=== PATIENT | male | born 1975 | race American Indian/Alaskan Native ===

== ENCOUNTER 2019-11-28 12:40 | Emergency (ER) | payer SELFPAY ==
[2019-11-28] MEDS ORDERED: SODIUM CHLORIDE 0.9% 1000 ML 1,000 ML IV ONE (13:07)
--- NOTE | 2019-11-28 13:38 | Emergency Department Report ---
HPI - General Chief Complaint: Alcohol Time Seen by Provider: 11/28/19 13:02 - HPI HPI: Room 2 The patient is a 44-year-old male present with a chief complaint of alcohol intoxication and suicidal ideation. Per EMS the patient was found in his car intoxicated. When asked what was bothering him the patient replies "everything." The patient acknowledges consuming alcohol but denies any other drugs. When asked if he has had thought of killing himself the patient replies yes. When asked for how long the patient states "quite a bit." The patient states he attempted to kill himself by drinking alcohol. Patient denies any other coingestants ED Past Medical Hx - Past Medical History Previous Medical History?: Yes Hx Hypertension: Yes Hx Diabetes: Yes - Surgical History Past Surgical History?: Yes Additional Surgical History: Right foot - Family History Family history: no significant - Social History Smoking Status: Never Smoker Substance Use Type: Alcohol ED Review of Systems ROS: Stated complaint: ETOH Other details as noted in HPI Psychiatric: suicidal thoughts Physical Exam - Physical Exam Vital Signs: Vital Signs 11/28/19 11/28/19 11/28/19 12:46 12:53 13:00 Temperature 98.7 F Pulse Rate 98 H 100 H 89 Respiratory 14 12 22 Rate Blood Pressure 120/74 120/74 118/68 O2 Sat by Pulse 95 Oximetry 11/28/19 13:15 Temperature Pulse Rate 99 H Respiratory 17 Rate Blood Pressure 129/83 O2 Sat by Pulse 97 Oximetry Physical Exam: GENERAL: The patient is well-developed well-nourished male lying on stretcher appearing intoxicated. [] HEENT: Normocephalic. Atraumatic. Extraocular motions are intact. Patient has moist mucous membranes. NECK: Supple. Trachea midline CHEST/LUNGS: Clear to auscultation. There is no respiratory distress noted. HEART/CARDIOVASCULAR: Regular. There is no tachycardia. There is no gallop rub or murmur. ABDOMEN: Abdomen is soft, nontender. Patient has normal bowel sounds. There is no abdominal distention. SKIN: There is no rash. There is no edema. There is no diaphoresis. NEURO: The patient is awake but intoxicated. The patient is not cooperative with neurologic exam. MUSCULOSKELETAL: There is no evidence of acute injury. ED Course Vital Signs 11/28/19 11/28/19 11/28/19 12:46 12:53 13:00 Temperature 98.7 F Pulse Rate 98 H 100 H 89 Respiratory 14 12 22 Rate Blood Pressure 120/74 120/74 118/68 O2 Sat by Pulse 95 Oximetry 11/28/19 13:15 Temperature Pulse Rate 99 H Respiratory 17 Rate Blood Pressure 129/83 O2 Sat by Pulse 97 Oximetry ED Medical Decision Making - Lab Data Result diagrams: 11/28/19 13:30 11/28/19 13:30 - Differential Diagnosis Suicidal ideation, alcohol intoxication Critical care attestation.: If time is entered above; I have spent that time in minutes in the direct care of this critically ill patient, excluding procedure time. ED Disposition Clinical Impression: Suicidal ideation Disposition: DC/TX-65 PSY HOSP/PSY UNIT Is pt being admited?: No Does the pt Need Aspirin: No Condition: Stable Time of Disposition: 16:32 (Awaiting acceptance)
[2019-11-28 13:51] LABS: Basophils # (Auto) 0.1 K/mm3 (0.0-0.1); Eosinophils % (Auto) 0.1 % (0.0-4.3); Hematocrit 45.3 % (35.5-45.6); Hemoglobin 14.7 gm/dl (11.8-15.2); Lymphocytes # (Auto) 2.6 K/mm3 (1.2-5.4); Lymphocytes % (Auto) 47.3 % (13.4-35.0); Mean Corpuscular HGB Conc 32 % (32-34); Mean Corpuscular Volume 81 fl (84-94); Monocytes # (Auto) 0.2 K/mm3 (0.0-0.8); Monocytes % (Auto) 3.2 % (0.0-7.3); Platelet Count 227 K/mm3 (140-440); Red Blood Count 5.57 M/mm3 (3.65-5.03); Red Cell Distribution Width 15.6 % (13.2-15.2)
[2019-11-28 14:44] LABS: Alanine Aminotransferase 34 units/L (7-56); Albumin 4.1 g/dL (3.9-5); BUN/Creatinine Ratio 20; Blood Urea Nitrogen 12 mg/dL (9-20); Calcium 8.9 mg/dL (8.4-10.2)
[2019-11-28 14:45] LABS: Hemolysis Index 19
[2019-11-28] MEDS ORDERED: MAGNESIUM SULFATE 2 GM/50 ML BAG IV ONE (14:47)
[2019-11-28] MEDS ORDERED: THIAMINE 100 MG, FOLIC ACID 1 MG, MULTIPLE VITAMIN INJ, ADULT 10 ML in SODIUM CHLORIDE ... IV ONE (15:30)
[2019-11-28] MEDS ORDERED: POTASSIUM CHLORIDE ER 20 MEQ TAB PO ONE (16:18)
[2019-11-28 16:30] LABS: Bilirubin,Urine NEG (Negative); Blood,Urine SM (Negative); Color,Urine Yellow (Yellow); Mucus,Urine FEW /HPF; Urobilinogen,Urine < 2.0 mg/dL (<2.0)
[2019-11-28 16:38] LABS: Amphetamine Screen,Urine PRESUMPTIVE NEGATIVE; Benzodiazepines Screen,Urine PRESUMPTIVE NEGATIVE; Cannabinoid Screen,Urine PRESUMPTIVE NEGATIVE; Cocaine Screen,Urine PRESUMPTIVE NEGATIVE; Methadone Screen,Urine PRESUMPTIVE NEGATIVE; Opiate Screen,Urine PRESUMPTIVE NEGATIVE
[2019-11-28] MEDS ORDERED: ACETAMINOPHEN 325 MG TAB PO ONE (23:00)
[2019-11-28] MEDS ORDERED: LISINOPRIL 20 MG TAB PO ONE ×2 (23:15→23:19)
[2019-11-28] MEDS ORDERED: METOPROLOL TARTRATE 50 MG TAB ONE (23:30)
[2019-11-28] MEDS ORDERED: ACETAMINOPHEN 325 MG TAB ONE (23:30)
[2019-11-29 08:10] VITALS: BP 153/91
--- NOTE | 2019-11-29 09:43 | Consultation ---
History of Present Illness - Reason for Consult Consult date: 11/29/19 Reason for consult: Psych Eval - History of Present Psychiatric Illness Patient reports that he was intoxicated last night. Patient describes a good and stable mood, denies being depressed or excessively nervous. Patient eats and sleeps well. Patient denies panic attacks, recurrent nightmares or flashbacks. Patient denies symptoms suggestive of OCD or PTSD. Patient denies hallucinatio ns, paranoia, thought interference and no features suggestive of hypomania or ruth. He completely denies suicidal or homicidal thoughts. Recommendation: DC 1013 Discharge home Medications and Allergies Allergies Allergy/AdvReac Type Severity Reaction Status Date / Time No Known Allergies Allergy Verified 11/28/19 15:02 Home Medications Medication Instructions Recorded Confirmed Last Taken Type Lisinopril [Zestril TAB] 40 mg PO QDAY 11/28/19 11/28/19 11/27/19 History Metoprolol [Lopressor] 100 mg PO BID 11/28/19 11/28/19 11/27/19 History hydroCHLOROthiazide 25 mg PO DAILY 11/28/19 11/28/19 11/27/19 History [Hydrochlorothiazide] Active Meds: Active Medications Metoprolol Tartrate (Metoprolol) 100 mg PO BID ANGELA Mental Status Exam - Vital signs Last Vital Signs Temp 98.0 F 11/29/19 07:59 Pulse 74 11/29/19 07:59 Resp 18 11/29/19 07:59 BP 153/91 11/29/19 07:59 Pulse Ox 97 11/29/19 07:59 Results Result Diagrams: 11/28/19 13:30 11/28/19 13:30 Abnormal lab results 11/28/19 11/28/19 11/28/19 Range/Units 13:30 13:30 13:30 RBC 5.57 H (3.65-5.03) M/mm3 MCV 81 L (84-94) fl MCH 26 L (28-32) pg RDW 15.6 H (13.2-15.2) % Lymph % (Auto) 47.3 H (13.4-35.0) % Potassium 3.4 L (3.6-5.0) mmol/L Creatinine 0.6 L (0.8-1.5) mg/dL Glucose 120 H (75-100) mg/dL AST 45 H (5-40) units/L Salicylates < 0.3 L (2.8-20.0) mg/dL Acetaminophen (10.0-30.0) ug/mL Plasma/Serum Alcohol (0-0.07) % 11/28/19 11/28/19 11/29/19 Range/Units 13:30 13:30 05:46 RBC (3.65-5.03) M/mm3 MCV (84-94) fl MCH (28-32) pg RDW (13.2-15.2) % Lymph % (Auto) (13.4-35.0) % Potassium (3.6-5.0) mmol/L Creatinine (0.8-1.5) mg/dL Glucose (75-100) mg/dL AST (5-40) units/L Salicylates (2.8-20.0) mg/dL Acetaminophen < 5.0 L (10.0-30.0) ug/mL Plasma/Serum Alcohol 0.39 H 0.18 H (0-0.07) % All other labs normal.
[2019-11-29] MEDS ORDERED: METOPROLOL TARTRATE 100 MG TAB PO SCH ×2 (10:00)
== END 2019-11-29 12:26 | disposition home or self-care (01) ==
LOC: ED 12:40
DX: R45.851 Suicidal ideations (principal); F10.129 Alcohol abuse with intoxication, unspecified; I10 Essential (primary) hypertension; E11.9 Type 2 diabetes mellitus without complications; Z98.890 Other specified postprocedural states
CPT/HCPCS: 36415; 80053; 80307; 81001; 85025; 96365; 96366; 96367; 99284; J3411; J3475; J7030; 80320; G0480

== ENCOUNTER 2019-12-01 00:44 | Emergency (ER) | payer SELFPAY ==
--- NOTE | 2019-12-01 01:39 | XRay Report ---
RIGHT TIBIA-FIBULA 2 VIEW(S) INDICATION / CLINICAL INFORMATION: fall COMPARISON: None available. FINDINGS: BONES / JOINT(S): Lateral side plate fixation of the distal fibula with super syndesmotic screws. Ali gnment is anatomic./Healing fracture of the proximal fibular neck. No significant arthritis. SOFT TISSUES: Moderate soft tissue swelling of the right lower leg extending to the ankle. ADDITIONAL FINDINGS: None. Signer Name: Bethany Carroll MD Signed: 12/01/2019 1:34 AM Workstation Name: [id number]
[2019-12-01] MEDS ORDERED: SODIUM CHLORIDE 0.9% 1000 ML 1,000 ML IV ONE (04:34)
--- NOTE | 2019-12-01 05:17 | Emergency Department Report ---
ED Extremity Problem HPI - General Chief complaint: Extremity Injury, Lower Stated complaint: FALL,RT LEG PAIN Time Seen by Provider: 12/01/19 04:33 Source: patient, EMS Mode of arrival: Wheelchair Limitations: No Limitations - History of Present Illness Initial comments: This is a 44-year-old male who has a history of alcohol intoxication presents the ED today complaining of right leg. Status post slip and fall at his home earlier today. Patient states that he got up and accidentally slipped and fell on a wooden floor at home. Patient denies hitting his head, loss of consciousness. Patient denies any nausea vomiting or diarrhea. Patient denies abdominal pain, chest pain, shortness of breath or any other symptoms. Patient does note that he has had surgery on the right ankle cold from previous fracture. MD Complaint: extremity pain Location: right - Related Data Home Medications Medication Instructions Recorded Confirmed Last Taken Lisinopril [Zestril TAB] 40 mg PO QDAY 11/28/19 11/28/19 11/27/19 Metoprolol [Lopressor] 100 mg PO BID 11/28/19 11/28/19 11/27/19 hydroCHLOROthiazide 25 mg PO DAILY 11/28/19 11/28/19 11/27/19 [Hydrochlorothiazide] Allergies Allergy/AdvReac Type Severity Reaction Status Date / Time No Known Allergies Allergy Verified 11/28/19 15:02 ED Review of Systems ROS: Stated complaint: FALL,RT LEG PAIN Other details as noted in HPI Comment: All other systems reviewed and negative ED Past Medical Hx - Past Medical History Hx Hypertension: Yes Hx Diabetes: Yes - Surgical History Additional Surgical History: Right foot - Social History Smoking Status: Former Smoker Substance Use Type: Alcohol - Medications Home Medications: Home Medications Medication Instructions Recorded Confirmed Last Taken Type Lisinopril [Zestril TAB] 40 mg PO QDAY 11/28/19 11/28/19 11/27/19 History Metoprolol [Lopressor] 100 mg PO BID 11/28/19 11/28/19 11/27/19 History hydroCHLOROthiazide 25 mg PO DAILY 11/28/19 11/28/19 11/27/19 History [Hydrochlorothiazide] ED Physical Exam - General Limitations: No Limitations General appearance: alert, in no apparent distress - Head Head exam: Present: atraumatic, normocephalic - Eye Eye exam: Present: normal appearance - ENT ENT exam: Present: mucous membranes moist - Neck Neck exam: Present: normal inspection - Respiratory Respiratory exam: Present: normal lung sounds bilaterally. Absent: respiratory distress - Cardiovascular Cardiovascular Exam: Present: regular rate, normal rhythm. Absent: systolic murmur, diastolic murmur, rubs, gallop - GI/Abdominal GI/Abdominal exam: Present: soft, normal bowel sounds - Rectal Rectal exam: Present: deferred - Extremities Exam Extremities exam: Present: normal inspection - Back Exam Back exam: Present: normal inspection - Neurological Exam Neurological exam: Present: alert, oriented X3 - Psychiatric Psychiatric exam: Present: normal affect, normal mood - Skin Skin exam: Present: warm, dry, intact, normal color. Absent: rash ED Course Vital Signs 12/01/19 00:48 Temperature 97.9 F Pulse Rate 98 H Respiratory 18 Rate Blood Pressure 162/92 O2 Sat by Pulse 99 Oximetry ED Medical Decision Making - Medical Decision Making 44-year-old male presents with pain to the right extremity from ground-level slip and fall When asked patient states that he is self-medicating with alcohol sometimes due to ankle pain from surgery. X-rays were completed. X-ray shows no acute fracture or dislocation. I explained this with patient patient. Patient is speaking in clear sentences is not slurred he is of his right mind. Blood alcohol level 0.31. Patient resuscitated with some IV fluids. Critical care attestation.: If time is entered above; I have spent that time in minutes in the direct care of this critically ill patient, excluding procedure time. ED Disposition Clinical Impression: Right leg pain, Myalgia, Abrasion foot/toe, Alcohol intoxication Disposition: DC-01 TO HOME OR SELFCARE Is pt being admited?: No Does the pt Need Aspirin: No Condition: Stable Instructions: Arthralgia (ED), Alcohol Intoxication (ED), Abuse of Alcohol (ED) Additional Instructions: Make sure to follow up with the primary care physician as discussed. Follow-up with your orthopedic doctor. Take Tylenol as needed for your pain If you have any worsening symptoms or develop new symptoms please return to ED immediately. Referrals: PRIMARY CARE, [Primary Care Provider] - 3-5 Days [facility] [place] [Outside] - 3-5 Days [facility] [Outside] - 3-5 Days [facility] [Provider Group] - 3-5 Days Time of Disposition: 05:48
[2019-12-01 08:23] VITALS: BP 137/74
== END 2019-12-01 08:25 | disposition home or self-care (01) ==
LOC: ED 00:44
DX: S90.811A Abrasion, right foot, initial encounter (principal); I10 Essential (primary) hypertension; E11.9 Type 2 diabetes mellitus without complications; Z87.891 Personal history of nicotine dependence; X58.XXXA Exposure to other specified factors, initial encounter; Y93.89 Activity, other specified; Y92.89 Other specified places as the place of occurrence of the external cause; Y99.8 Other external cause status
CPT/HCPCS: 36415; 73590; 99284; J7030; 80320; G0480

== ENCOUNTER 2019-12-02 18:58 | Emergency (ER) | payer SELFPAY ==
[2019-12-02] MEDS ORDERED: SODIUM CHLORIDE 0.9% 1000 ML 1,000 ML IV ONE (19:23)
[2019-12-02 19:49] LABS: Basophils # (Auto) 0.1 K/mm3 (0.0-0.1); Eosinophils % (Auto) 0.5 % (0.0-4.3); Hematocrit 41.9 % (35.5-45.6); Hemoglobin 13.7 gm/dl (11.8-15.2); Lymphocytes # (Auto) 2.7 K/mm3 (1.2-5.4); Lymphocytes % (Auto) 52.7 % (13.4-35.0); Mean Corpuscular HGB Conc 33 % (32-34); Mean Corpuscular Volume 81 fl (84-94); Monocytes # (Auto) 0.2 K/mm3 (0.0-0.8); Monocytes % (Auto) 3.4 % (0.0-7.3); Platelet Count 215 K/mm3 (140-440); Red Blood Count 5.19 M/mm3 (3.65-5.03); Red Cell Distribution Width 15.7 % (13.2-15.2)
[2019-12-02 20:08] LABS: BUN/Creatinine Ratio 12; Blood Urea Nitrogen 7 mg/dL (9-20); Calcium 8.1 mg/dL (8.4-10.2); Hemolysis Index 68
--- NOTE | 2019-12-02 20:08 | Emergency Department Report ---
<ALFONSO JOHNSON - Last Filed: 12/02/19 20:38> ED General Adult HPI - General Chief complaint: Altered Mental Status Stated complaint: INTOXICATION Time Seen by Provider: 12/02/19 19:22 Source: EMS Mode of arrival: Stretcher Limitations: Other - History of Present Illness Initial comments: Patient is a 44-year-old F [place] male who is presenting with alcohol intoxication. Patient does have a history of heavy alcohol abuse. Patient appears to being in capacitated due to alcohol. Patient was unconscious and had to have a nasal trumpet placed with subsegmental oxygen with a nonrebreather. Patient is awake currently with slurring of speech and does fall asleep mid sentence. - Related Data Home Medications Medication Instructions Recorded Confirmed Last Taken Lisinopril [Zestril TAB] 40 mg PO QDAY 11/28/19 11/28/19 11/27/19 Metoprolol [Lopressor] 100 mg PO BID 11/28/19 11/28/19 11/27/19 hydroCHLOROthiazide 25 mg PO DAILY 11/28/19 11/28/19 11/27/19 [Hydrochlorothiazide] Allergies Allergy/AdvReac Type Severity Reaction Status Date / Time No Known Allergies Allergy Verified 11/28/19 15:02 ED Review of Systems Comment: All other systems reviewed and negative ED Past Medical Hx - Past Medical History Previous Medical History?: Yes Hx Hypertension: Yes Hx Diabetes: Yes - Surgical History Past Surgical History?: Yes Additional Surgical History: Right foot - Social History Smoking Status: Former Smoker Substance Use Type: Alcohol - Medications Home Medications: Home Medications Medication Instructions Recorded Confirmed Last Taken Type Lisinopril [Zestril TAB] 40 mg PO QDAY 11/28/19 11/28/19 11/27/19 History Metoprolol [Lopressor] 100 mg PO BID 11/28/19 11/28/19 11/27/19 History hydroCHLOROthiazide 25 mg PO DAILY 11/28/19 11/28/19 11/27/19 History [Hydrochlorothiazide] ED Physical Exam - General Limitations: Other General appearance: alert, in no apparent distress, appears intoxicated - Head Head exam: Present: atraumatic, normocephalic - Eye Eye exam: Present: normal appearance, PERRL, EOMI - ENT ENT exam: Present: mucous membranes moist - Neck Neck exam: Present: normal inspection - Respiratory Respiratory exam: Present: normal lung sounds bilaterally. Absent: respiratory distress, wheezes, rales - Cardiovascular Cardiovascular Exam: Present: regular rate, normal rhythm, normal heart sounds. Absent: systolic murmur, diastolic murmur, rubs, gallop - GI/Abdominal GI/Abdominal exam: Present: soft, normal bowel sounds. Absent: distended, tenderness, guarding - Rectal Rectal exam: Present: deferred - Extremities Exam Extremities exam: Present: normal inspection - Back Exam Back exam: Present: normal inspection - Neurological Exam Neurological exam: Present: alert, oriented X3 - Psychiatric Psychiatric exam: Present: normal affect, normal mood - Skin Skin exam: Present: warm, dry, intact, normal color. Absent: rash ED Course - Reevaluation(s) Reevaluation #1: 12/02/19 20:36 Patient is has significant alcohol intoxication at this time. Patient will be monitored until he reaches sobriety and then likely will be able to be discharged. Reevaluation #2: 12/02/19 20:38 Patient likely will not be able to be discharged from the emergency department without assistance until tomorrow at approximately 9 AM-12 noon on 12/03/2019 ED Medical Decision Making - Lab Data Result diagrams: 12/02/19 19:35 12/02/19 19:35 Lab Results 12/02/19 12/02/19 12/02/19 Range/Units 19:35 19:35 19:35 WBC 5.2 (4.5-11.0) K/mm3 RBC 5.19 H (3.65-5.03) M/mm3 Hgb 13.7 (11.8-15.2) gm/dl Hct 41.9 (35.5-45.6) % MCV 81 L (84-94) fl MCH 26 L (28-32) pg MCHC 33 (32-34) % RDW 15.7 H (13.2-15.2) % Plt Count 215 (140-440) K/mm3 Lymph % (Auto) 52.7 H (13.4-35.0) % Sandoval % (Auto) 3.4 (0.0-7.3) % Eos % (Auto) 0.5 (0.0-4.3) % Baso % (Auto) 1.0 (0.0-1.8) % Lymph # 2.7 (1.2-5.4) K/mm3 Sandoval # 0.2 (0.0-0.8) K/mm3 Eos # 0.0 (0.0-0.4) K/mm3 Baso # 0.1 (0.0-0.1) K/mm3 Seg Neutrophils % 42.4 (40.0-70.0) % Seg Neutrophils # 2.2 (1.8-7.7) K/mm3 Sodium 145 (137-145) mmol/L Potassium 3.4 L (3.6-5.0) mmol/L Chloride 98.9 (98-107) mmol/L Carbon Dioxide 25 (22-30) mmol/L Anion Gap 25 mmol/L BUN 7 L (9-20) mg/dL Creatinine 0.6 L (0.8-1.5) mg/dL Estimated GFR > 60 ml/min BUN/Creatinine Ratio 12 % Glucose 128 H (75-100) mg/dL Calcium 8.1 L (8.4-10.2) mg/dL Plasma/Serum Alcohol 0.51 H (0-0.07) % ED Disposition Clinical Impression: Alcohol intoxication Disposition: DC-01 TO HOME OR SELFCARE Is pt being admited?: No Does the pt Need Aspirin: No Condition: Stable Instructions: Alcohol Intoxication (ED) Referrals: JENNIFER OZUNA MD [Staff Physician] - as needed <DARYL JOHNSON - Last Filed: 12/03/19 10:44> ED Review of Systems ROS: Stated complaint: INTOXICATION Other details as noted in HPI ED Course Vital Signs 12/02/19 12/02/19 12/02/19 19:13 19:16 19:25 Temperature 97.6 F Pulse Rate 103 H 93 H Respiratory 25 H 9 L 18 Rate Blood Pressure 141/96 135/77 Blood Pressure [Right] O2 Sat by Pulse 100 100 100 Oximetry 12/02/19 12/02/19 12/02/19 20:00 21:00 21:56 Temperature Pulse Rate 83 83 106 H Respiratory 18 16 21 Rate Blood Pressure 125/76 132/84 132/84 Blood Pressure [Right] O2 Sat by Pulse 88 96 95 Oximetry 12/02/19 12/02/19 12/03/19 22:00 23:00 02:00 Temperature Pulse Rate 96 H 101 H Respiratory 16 18 Rate Blood Pressure 132/84 Blood Pressure 121/65 [Right] O2 Sat by Pulse 97 97 96 Oximetry 12/03/19 12/03/19 12/03/19 03:00 04:00 05:00 Temperature 98.2 F Pulse Rate 96 H Respiratory 18 Rate Blood Pressure 117/61 109/62 104/56 Blood Pressure 109/62 [Right] O2 Sat by Pulse 99 98 99 Oximetry 12/03/19 12/03/19 12/03/19 06:00 07:00 07:25 Temperature 97.7 F Pulse Rate 101 H Respiratory 16 Rate Blood Pressure 118/73 99/64 Blood Pressure 115/65 [Right] O2 Sat by Pulse 95 95 98 Oximetry 12/03/19 12/03/19 08:00 09:00 Temperature Pulse Rate 98 H 87 Respiratory 15 20 Rate Blood Pressure 122/75 136/72 Blood Pressure [Right] O2 Sat by Pulse 98 98 Oximetry ED Medical Decision Making - Lab Data Result diagrams: 12/02/19 19:35 12/02/19 19:35 - Medical Decision Making Mr. Dhaliwal presented with severe alcohol intoxication. He is now lucid awake articulate. He is ambulatory without difficulty. He was discharged home. Currently denies suicidal ideation. Critical care attestation.: If time is entered above; I have spent that time in minutes in the direct care of this critically ill patient, excluding procedure time. ED Disposition Is pt being admited?: No Does the pt Need Aspirin: No
[2019-12-03] MEDS ORDERED: IBUPROFEN 800 MG TAB PO ONE
[2019-12-03 09:54] VITALS: BP 136/72
== END 2019-12-03 10:53 | disposition home or self-care (01) ==
LOC: ED 18:58
DX: F10.129 Alcohol abuse with intoxication, unspecified (principal); I10 Essential (primary) hypertension; E11.9 Type 2 diabetes mellitus without complications; Z98.890 Other specified postprocedural states; Z87.891 Personal history of nicotine dependence; Z79.899 Other long term (current) drug therapy
CPT/HCPCS: 36415; 80048; 85025; 99284; J7030; 80320; G0480

== ENCOUNTER 2019-12-06 09:20 | Emergency (ER) | payer SELFPAY ==
[2019-12-06] MEDS ORDERED: ONDANSETRON 4 MG/2 ML INJ IV ONE (10:21)
[2019-12-06] MEDS ORDERED: SODIUM CHLORIDE 0.9% 1000 ML 1,000 ML IV ONE (10:21)
--- NOTE | 2019-12-06 10:40 | Emergency Department Report ---
ED Psych HPI - General Stated Complaint: SUICIDAL Time Seen by Provider: 12/06/19 10:10 Source: patient, EMS, old records reviewed Mode of arrival: Stretcher Limitations: Other (Intoxication) - History of Present Illness Initial Comments: Mr. Dhaliwal is a 44-year-old male with history of hypertension depression who presents with possible alcohol intoxication and suicidal ideation. He was brought by EMS from his hotel room. He called 911 for suicidal thoughts. He does not have plans to harm himself. He denies any new pain. He states that he drinks to numb the pain in his right leg. He has history of previous ankle surgery. He defecated en route on the EMS stretcher. Paramedics report discovering 2 empty bottles in the hotel room. According to electronic medical record this gentleman has had 3 previous ED visits within the last week. He currently does not have a plan to harm himself. He does not have a plan to harm others. MD Complaint: suicidal ideation -: This morning Associated Psychiatric Symptoms: suicidal ideation History of same: Yes Quality: constant Improves With: none Worsens With: none Context: recent alcohol abuse Treatments Prior to Arrival: none If Self Harm: admits thoughts of - Related Data Home Medications Medication Instructions Recorded Confirmed Last Taken Lisinopril [Zestril TAB] 40 mg PO QDAY 11/28/19 11/28/19 11/27/19 Metoprolol [Lopressor] 100 mg PO BID 11/28/19 11/28/19 11/27/19 hydroCHLOROthiazide 25 mg PO DAILY 11/28/19 11/28/19 11/27/19 [Hydrochlorothiazide] Allergies Allergy/AdvReac Type Severity Reaction Status Date / Time No Known Allergies Allergy Verified 12/06/19 10:25 ED Review of Systems ROS: Stated complaint: SUICIDAL Other details as noted in HPI Comment: All other systems reviewed and negative Constitutional: denies: fever, malaise Respiratory: denies: cough, shortness of breath Cardiovascular: denies: chest pain Psychiatric: suicidal thoughts ED Past Medical Hx - Past Medical History Previous Medical History?: Yes Hx Hypertension: Yes Hx Diabetes: Yes - Surgical History Past Surgical History?: Yes Additional Surgical History: Right foot - Social History Smoking Status: Former Smoker Substance Use Type: Alcohol - Medications Home Medications: Home Medications Medication Instructions Recorded Confirmed Last Taken Type Lisinopril [Zestril TAB] 40 mg PO QDAY 11/28/19 11/28/19 11/27/19 History Metoprolol [Lopressor] 100 mg PO BID 11/28/19 11/28/19 11/27/19 History hydroCHLOROthiazide 25 mg PO DAILY 11/28/19 11/28/19 11/27/19 History [Hydrochlorothiazide] ED Physical Exam - General General appearance: alert, in no apparent distress, appears intoxicated, other (Disheveled dirty clothing covered in feces) - Head Head exam: Present: atraumatic, normocephalic - Eye Eye exam: Present: conjunctival injection - ENT ENT exam: Present: mucous membranes moist - Neck Neck exam: Present: normal inspection, full ROM - Respiratory Respiratory exam: Present: normal lung sounds bilaterally. Absent: respiratory distress, wheezes, rales, rhonchi - Cardiovascular Cardiovascular Exam: Present: regular rate, normal rhythm, normal heart sounds. Absent: systolic murmur, diastolic murmur, rubs, gallop - GI/Abdominal GI/Abdominal exam: Present: soft, normal bowel sounds. Absent: distended, tenderness, guarding, rebound - Rectal Rectal exam: Present: deferred - Extremities Exam Extremities exam: Present: pedal edema (Nonpitting edema in both extremities) - Neurological Exam Neurological exam: Present: alert, oriented X3 - Psychiatric Psychiatric exam: Present: depressed, other (Labile affect) - Skin Skin exam: Present: warm, dry, intact, normal color. Absent: rash ED Course Vital Signs 12/06/19 12/06/19 12/07/19 11:47 20:00 01:00 Temperature 97.8 F 99.0 F 98.9 F Pulse Rate 67 90 87 Respiratory 16 18 22 Rate Blood Pressure 123/67 124/85 126/69 [Left] O2 Sat by Pulse 97 98 99 Oximetry 12/07/19 12/07/19 11:00 12:02 Temperature 98.8 F Pulse Rate 89 Respiratory 20 16 Rate Blood Pressure 166/88 [Left] O2 Sat by Pulse 95 Oximetry ED Medical Decision Making - Lab Data Result diagrams: 12/06/19 11:29 12/06/19 11:29 - Medical Decision Making 1. Reported Suicidal ideation, patient does not currently endorse this notion. When I reassessed Mr. Dhaliwal, he stated that "I want to be on the psychiatric board" I have requested consultation from our mental health team. 2. Acute alcohol intoxication: Supportive measures including IV hydration car diac monitoring pulse oximetry, blood alcohol highly elevated 0.42. Will likely be discharged once sober if he does not require psychiatric intervention. Replete blood alcohol level ordered for 1899 Mr. Dhaliwal has been cleared by our psychiatric staff. He is discharged home. Critical care attestation.: If time is entered above; I have spent that time in minutes in the direct care of this critically ill patient, excluding procedure time. ED Disposition Clinical Impression: Acute alcohol intoxication, Acute depression, Chronic pain of right lower extremity Disposition: DC-01 TO HOME OR SELFCARE Is pt being admited?: No Does the pt Need Aspirin: No Condition: Stable Instructions: Abuse of Alcohol (ED) Referrals: JENNIFER OZUNA MD [Staff Physician] - 3-5 Days
[2019-12-06 12:07] LABS: Basophils % (Auto) 0.6 % (0.0-1.8); Hematocrit 37.8 % (35.5-45.6); Hemoglobin 12.4 gm/dl (11.8-15.2); Lymphocytes # (Auto) 1.3 K/mm3 (1.2-5.4); Mean Corpuscular HGB Conc 33 % (32-34); Mean Corpuscular Volume 82 fl (84-94); Monocytes # (Auto) 0.1 K/mm3 (0.0-0.8); Monocytes % (Auto) 2.8 % (0.0-7.3); Platelet Count 120 K/mm3 (140-440); Red Blood Count 4.62 M/mm3 (3.65-5.03); Red Cell Distribution Width 16.3 % (13.2-15.2)
[2019-12-06 12:30] LABS: Hemolysis Index 160
[2019-12-06 12:42] LABS: Blood Urea Nitrogen TNR mg/dL (9-20)
[2019-12-06 12:43] LABS: Alanine Aminotransferase TNR units/L (7-56); Albumin TNR g/dL (3.9-5); BUN/Creatinine Ratio TNR; Calcium TNR mg/dL (8.4-10.2)
[2019-12-06 12:57] LABS: Alanine Aminotransferase 96 units/L (7-56); Albumin 4.1 g/dL (3.9-5); BUN/Creatinine Ratio 15; Blood Urea Nitrogen 19 mg/dL (9-20); Calcium 7.6 mg/dL (8.4-10.2); Hemolysis Index 61
[2019-12-06] MEDS ORDERED: IBUPROFEN 600 MG TAB PO ONE (23:28)
[2019-12-07 03:10] LABS: Bilirubin,Urine NEG (Negative); Blood,Urine SM (Negative); Color,Urine Yellow (Yellow); Mucus,Urine FEW /HPF; RBC,Urine < 1.0 /HPF (0.0-6.0); Urobilinogen,Urine < 2.0 mg/dL (<2.0)
[2019-12-07 03:23] LABS: Amphetamine Screen,Urine PRESUMPTIVE NEGATIVE; Benzodiazepines Screen,Urine PRESUMPTIVE NEGATIVE; Cannabinoid Screen,Urine PRESUMPTIVE NEGATIVE; Cocaine Screen,Urine PRESUMPTIVE NEGATIVE; Methadone Screen,Urine PRESUMPTIVE NEGATIVE; Opiate Screen,Urine PRESUMPTIVE NEGATIVE
[2019-12-07] MEDS ORDERED: LORazepam 2 MG/ML VIAL IV PRN ×3 (09:38)
[2019-12-07] MEDS ORDERED: chlordiazePOXIDE 25 MG CAP PO PRN ×2 (09:38)
[2019-12-07] MEDS ORDERED: ONDANSETRON 4 MG/2 ML INJ IV ONE (09:40)
--- NOTE | 2019-12-07 12:47 | Consultation ---
History of Present Illness - Reason for Consult Consult date: 12/07/19 Reason for consult: Suicidal Requesting physician: DARYL JOHNSON - Chief Complaint Chief complaint: I was drinking doc - History of Present Psychiatric Illness The patient is a 44yo single employed ([employer]) with history of Alcohol use disorder. He presented to the ED with alcohol intoxication and suicidal thoughts. Psychiatry consulted for SI. Per ED Physician, Isra is a 44-year-old male with history of hypertension depression who presents with possible alcohol intoxication and suicidal ideation. He was brought by EMS from his hotel room. He called 911 for suicidal thoughts. He does not have plans to harm himself. He denies any new pain. He states that he drinks to numb the pain in his right leg. He has history of previous ankle surgery. He defecated en route on the EMS stretcher. Paramedics report discovering 2 empty bottles in the hotel room. According to electronic medical record this gentleman has had 3 previous ED visits within the last week. He currently does not have a plan to harm himself. He does not have a plan to harm others. In my interview with the patient this morning, he acknowledges being depressed and says that he is stressed about the economy. 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 He re peatedly denies being suicidal. Patient denies panic attacks, recurrent nightmares or flashbacks. Patient denies symptoms suggestive of OCD or PTSD. Patient denies hallucinations, paranoia, thought interference and no features suggestive of hypomania or ruth. He denies homicidal thoughts. 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 Access to guns/weapons: Patient denies Education: Some college History of Abuse: Patient denies Legal History: Patient denies ROS: Constitutional: Negative for weight loss ENT: Negative for stridor Respiratory: Negative for cough or hemoptysis All other systems reviewed and are negative MENTAL STATUS General Appearance and Behavior: age appropriate, good eye contact, cooperative with questioning and polite Cooperation: Cooperative Psychomotor Behavior: within normal limits Mood: depressed Affect and affective range: Congruent with stated mood Thought Process: Fluent/Logical and Goal-directed Thought Content: Within reality Speech: Normal volume and Regular rate and rhythm Intellectual Functioning Average Suicidal Ideation: Denies SI Homicidal Ideation: Denies HI Impulse Control: intact Insight and Judgment: normal insight and judgment Memory: Normal Attention: Normal Orientation: alert and oriented RECOMMENDATIONS MEDICATIONS: No medication adjustment recommended at this time. 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 Patient was offered inpatient psychiatric treatment on a Voluntary status, but he declined. He also declined medical admission for alcohol detox. He states that his lease at the hotel yesterday, he is concerned about his property at the hotel and his car which may be towed because of where it is parked. He asks to be discharged from the hospital. LEGAL STATUS: 1013 discontinued as patient does not meet criteria to hold him against his wish. FOLLOW-UP: Will sign off Thank you Medications and Allergies Allergies Allergy/AdvReac Type Severity Reaction Status Date / Time No Known Allergies Allergy Verified 12/06/19 10:25 Home Medications Medication Instructions Recorded Confirmed Last Taken Type Lisinopril [Zestril TAB] 40 mg PO QDAY 11/28/19 11/28/19 11/27/19 History Metoprolol [Lopressor] 100 mg PO BID 11/28/19 11/28/19 11/27/19 History hydroCHLOROthiazide 25 mg PO DAILY 11/28/19 11/28/19 11/27/19 History [Hydrochlorothiazide] Active Meds: Active Medications Chlordiazepoxide HCl (Librium) 50 mg PO Q1H PRN PRN Reason: CIWA-Ar 8-15 Chlordiazepoxide HCl (Librium) 100 mg PO Q1H PRN PRN Reason: CIWA-Ar 16-25 Lorazepam (Ativan) 2 mg IV Q1H PRN PRN Reason: CIWA-Ar 8-15 Last Admin: 12/07/19 10:12 Dose: 2 mg Documented by: Lorazepam (Ativan) 4 mg IV Q1H PRN PRN Reason: CIWA-Ar 16-25 Lorazepam (Ativan) 4 mg IV Q15MIN PRN PRN Reason: CIWA-Ar >25 Mental Status Exam - Vital signs Last Vital Signs Temp 98.8 F 12/07/19 11:00 Pulse 89 12/07/19 11:00 Resp 16 12/07/19 12:02 BP 166/88 12/07/19 11:00 Pulse Ox 95 12/07/19 11:00 Results Result Diagrams: 12/06/19 11:29 12/06/19 11:29 Abnormal lab results 12/06/19 12/06/19 Range/Units 11:29 18:59 Chloride 90.3 L (98-107) mmol/L Carbon Dioxide 19 L (22-30) mmol/L Glucose 72 L (75-100) mg/dL Calcium 7.6 L (8.4-10.2) mg/dL AST 164 H (5-40) units/L ALT 96 H (7-56) units/L Plasma/Serum Alcohol 0.28 H (0-0.07) % All other labs normal.
[2019-12-07 14:55] VITALS: BP 166/99
== END 2019-12-07 14:55 | disposition home or self-care (01) ==
LOC: ED 09:20 → EEVIPCON 09:20 → ED 12-07 14:55
DX: F10.920 Alcohol use, unspecified with intoxication, uncomplicated (principal); M79.604 Pain in right leg; F32.9 Major depressive disorder, single episode, unspecified; I10 Essential (primary) hypertension; E11.9 Type 2 diabetes mellitus without complications; Z87.891 Personal history of nicotine dependence; Z79.899 Other long term (current) drug therapy; Z98.890 Other specified postprocedural states
CPT/HCPCS: 36415; 80053; 80307; 81001; 85025; 96374; 96375; 96376; 99285; J2060; J2405; J7030; 80320; G0480